=== PATIENT | male | born 1940 | race Caucasian/White ===

== ENCOUNTER 2023-05-08 10:48 | Inpatient (IN) ==
[2023-05-08] MEDS: Propofol 10 mg/ml 100 ML BTL 1,000 MG/100 ML BTL IV SCH ×4 (10:57→23:25)
[2023-05-08] MEDS ORDERED: VERAPAMIL 2.5 MG/ML 2 ML VIAL ** 5 mg/2 ml ONE (11:13)
[2023-05-08] MEDS ORDERED: Heparin 1,000 UNIT/ML 10 ml (10,000 UNITS) CATHLAB/DIALYSIS ONE (11:13)
[2023-05-08 11:14] LABS: ABS Basophils 0.1 10^3/uL (0.0-0.1); ABS Eosinophils 0.1 10^3/uL (0.0-0.5); ABS Lymphocytes 2.7 10^3/uL (1.0-4.8); ABS Monocytes 0.8 10^3/uL (0.0-1.1); ABS Neutrophils 9.4 10^3/uL (1.5-7.6); ABS Nucleated RBC 0.01 10^3/ul; Eosinophil % 1.1 %; Hematocrit 35.1 % (38-53); Hemoglobin 11.4 g/dL (13.2-16.3); Lymphocyte % 20.4 %; Mean Corpuscular Hgb Conc 32.5 g/dL (31-36); Mean Corpuscular Volume 101.3 fL (80-97); Mean Platelet Volume 7.6 fL (7.5-11.2); Nucleated Red Blood Cells % 0.1 %/100WBC (0.0-0.8); Platelet Count 255 10^3/uL (150-450); Red Blood Count 3.46 10^6/uL (4.06-5.63); Red Cell Distribution Width 16.7 % (12-17); White Blood Count 13.2 10^3/uL (3.6-10.2)
[2023-05-08] MEDS ORDERED: Lidocaine 1% MPF 5 ML VIAL ONE (11:14)
[2023-05-08] MEDS ORDERED: Iodixanol (CONTRAST) 320 MG/ML 100 ML SDV IV ONE (11:14)
[2023-05-08] MEDS ORDERED: nitroGLYCERIN DRIP 25,000 MCG/250 ML BTL ONE (11:14)
[2023-05-08] MEDS ORDERED: Heparin 2 UNITS/ML 1000 mls 3,000 ML IV ONE (11:14)
[2023-05-08] MEDS ORDERED: Midazolam 5 mg/5 ml VIAL 1 mg/ml 5 ml VIAL (5 mg) ONE (11:15)
[2023-05-08] MEDS ORDERED: fentaNYL 100 mcg/2 ml 50 MCG/ML VIAL ONE ×2 (11:15→13:54)
[2023-05-08 11:27] LABS: Activated Partial Thrombo Time 35.8 seconds (26.0-38.0); INR 1.34 (0.83-1.13)
[2023-05-08] MEDS ORDERED: Heparin 2 UNITS/ML 1000 mls 1,000 ML IV ONE ×2 (11:33→12:47)
[2023-05-08] MEDS ORDERED: Iohexol 350 (CONTRAST) 200 ML MDV IV ONE (11:34)
[2023-05-08 11:44] LABS: Albumin 3.6 g/dL (3.2-5.2); Albumin/Globulin Ratio 1.2 (1-3); C Reactive Protein 12.48 mg/L (<8.01); Calcium 8.3 mg/dL (8.6-10.3); Creatinine, Serum 1.54 mg/dL (0.67-1.17); Globulin 2.9 g/dL (2-4); Potassium 3.7 mmol/L (3.5-5.0); Total Bilirubin 0.7 mg/dL (0.2-1.0); Total Protein 6.5 g/dL (6.4-8.9); eGFR CKD-EPI 44.5 (>60)
[2023-05-08 11:53] LABS: Urine Appearance Clear; Urine Bilirubin Negative (Negative); Urine Blood 1+ (Negative); Urine Color Yellow; Urine Glucose Negative (Negative); Urine Ketones Negative (Negative); Urine Nitrite Negative (Negative); Urine Protein 2+(100 mg/dL) (Negative); Urine Urobilinogen Negative (Negative)
[2023-05-08 12:14] LABS: Urine Bacteria Absent (Absent); Urine Red Blood Cell 2+(6-10/hpf) (Absent); Urine White Blood Cell 1+(6-10/hpf) (Absent)
[2023-05-08] MEDS ORDERED: Propofol 10 MG/ML 20 ML BTL IV PUSH ONE (12:30)
[2023-05-08] MEDS ORDERED: fentaNYL 100 mcg/2 ml 50 MCG/ML VIAL IV SLOW PU ONE (12:32)
[2023-05-08] MEDS ORDERED: Atropine 1 MG/ML INJ 1 ML VIAL IV PUSH ONE (12:33)
[2023-05-08] MEDS ORDERED: Atropine 0.1 MG/ML 10 ml SYR (1 mg) ONE (12:41)
[2023-05-08] MEDS ORDERED: Iohexol 350 (CONTRAST) 100 ML PAK IV ONE ×2 (13:42→14:26)
[2023-05-08 14:01] LABS: High Sensitivity Troponin 1 Hr 213 pg/mL (<20)
[2023-05-08 17:04] LABS: PCO2 Arterial 39 mmHg (35-45); PO2 Arterial 127 mmHg (80-100)
[2023-05-08] MEDS ORDERED: Norepinephrine 4 MG/250mL D5W 4,000 MCG/250 ML BAG IV ONE (17:44)
[2023-05-08] MEDS ORDERED: Norepinephrine 4 MG/250mL NS 4,000 MCG/250 ML BAG IV SCH (18:00)
[2023-05-08] MEDS: Midazolam PREMIXBAG 1 MG/ML NS 100 ML IV SCH (18:02)
[2023-05-08] MEDS ORDERED: Vancomycin 1,750 MG in NS 0.9% 500 ml BAG 500 ML IVPB ONE (18:41)
[2023-05-08] MEDS ORDERED: Vancomycin per Pharmacy 1 EA NOTE FOLLOW UP PRN (18:47)
[2023-05-08] MEDS: Chlorhexidine MOUTHWASH 0.12% 15 ML UDC SWISH SPIT SCH ×2 (19:56→21:30)
[2023-05-08] MEDS: Pantoprazole VIAL 40 MG VIAL IV SCH (19:56)
[2023-05-08] MEDS: Cefepime 2 GM in Dextrose 2 GM/50 ML BAG IV SCH (21:22)
[2023-05-08 21:26] LABS: PCO2 Arterial 36 mmHg (35-45); PO2 Arterial 107 mmHg (80-100)
[2023-05-09] MEDS: Chlorhexidine MOUTHWASH 0.12% 15 ML UDC SWISH SPIT SCH ×6 (01:36→21:14)
[2023-05-09] MEDS: Midazolam PREMIXBAG 1 MG/ML NS 100 ML IV SCH ×3 (03:45→17:31)
[2023-05-09 04:09] LABS: ABS Basophils 0.1 10^3/uL (0.0-0.1); ABS Lymphocytes 0.7 10^3/uL (1.0-4.8); ABS Monocytes 0.9 10^3/uL (0.0-1.1); ABS Nucleated RBC 0.01 10^3/ul; Eosinophil % 0.1 %; Hematocrit 30.9 % (38-53); Hemoglobin 10.4 g/dL (13.2-16.3); Mean Corpuscular Hemoglobin 33.8 pg (27-33); Mean Corpuscular Hgb Conc 33.8 g/dL (31-36); Mean Corpuscular Volume 100.1 fL (80-97); Mean Platelet Volume 7.3 fL (7.5-11.2); Nucleated Red Blood Cells % 0.1 %/100WBC (0.0-0.8); Platelet Count 243 10^3/uL (150-450); Red Blood Count 3.08 10^6/uL (4.06-5.63); Red Cell Distribution Width 16.7 % (12-17); White Blood Count 10.6 10^3/uL (3.6-10.2)
[2023-05-09 04:15] LABS: INR 1.44 (0.83-1.13)
[2023-05-09 04:26] LABS: Albumin 3.4 g/dL (3.2-5.2); Albumin/Globulin Ratio 1.4 (1-3); Calcium 8.1 mg/dL (8.6-10.3); Creatinine, Serum 1.23 mg/dL (0.67-1.17); Globulin 2.5 g/dL (2-4); Magnesium 1.8 mg/dL (1.9-2.7); Phosphorus 3.7 mg/dL (2.5-5.0); Potassium 4.6 mmol/L (3.5-5.0); Total Bilirubin 0.7 mg/dL (0.2-1.0); Total Protein 5.9 g/dL (6.4-8.9); eGFR CKD-EPI 58.3 (>60)
[2023-05-09] MEDS: Propofol 10 mg/ml 100 ML BTL 1,000 MG/100 ML BTL IV SCH ×3 (04:28→18:51)
[2023-05-09] MEDS ORDERED: Magnesium Sulfate IV 0.5 GM/ML 2 ml VIAL (1 gm) IVPB ONE (05:31)
[2023-05-09] MEDS ORDERED: Magnesium Sulfate 2 GM IV (Premix) IVPB ONE (06:00)
[2023-05-09] MEDS: Cefepime 2 GM in Dextrose 2 GM/50 ML BAG IV SCH (07:33)
[2023-05-09] MEDS ORDERED: Furosemide 20 mg/2 ml IV VIAL IV SLOW PU ONE ×2 (09:54→16:46)
[2023-05-09] MEDS ORDERED: Artificial Tear OPHTH.OINT 3.5 GM BOTH EYES PRN (09:55)
[2023-05-09] MEDS ORDERED: Sulfur Hexaflouride MICROSPHR 25 MG VIAL ONE (09:56)
[2023-05-09] MEDS ORDERED: fentaNYL INFUSION 50 mcg/mL VL 2,500 MCG/50 ML VIAL IV SCH (10:00)
[2023-05-09] MEDS: fentaNYL INFUSION 50 mcg/mL VL 2,500 MCG/50 ML VIAL IV SCH (11:59)
[2023-05-09] MEDS ORDERED: Rocuronium 50 mg VIAL 10 mg/ml 5 ml VIAL (50 mg) IV ONE (12:15)
[2023-05-09] MEDS ORDERED: Rocuronium 50 mg VIAL 10 mg/ml 5 ml VIAL (50 mg) ONE (12:16)
[2023-05-09 13:10] LABS: High Sensitivity Troponin 1 Hr 964 pg/mL (<20)
[2023-05-09] MEDS ORDERED: levETIRAcetam 1000MG IVPREMIX 1,000 MG/100 ML BAG IVPB ONE (13:24)
[2023-05-09] MEDS: cefTRIAXone 2 gm/50 mL D5W 2 GM/50 ML BAG IV SCH (14:18)
[2023-05-09 15:06] VITALS: BP 141/71
[2023-05-09] MEDS: Enoxaparin 40 MG/0.4 ML SYR SUBCUT SCH (17:15)
[2023-05-09] MEDS: Pantoprazole VIAL 40 MG VIAL IV SCH (17:15)
[2023-05-09] MEDS ORDERED: Dextrose 50% Syringe 50 ml 25 GM/50 ML SYRINGE IV PUSH PRN (18:08)
[2023-05-09] MEDS ORDERED: Vancomycin 1,250 MG in NS 0.9% 250 ml 250 ML IVPB SCH (21:00)
[2023-05-09] MEDS: levETIRAcetam 500 MG IVPREMIX 500 MG/100 ML BAG IV SCH (21:14)
[2023-05-09] MEDS: DOXYcycline 100 MG in NS 0.9% 250 ml 250 ML IVPB SCH (22:09)
[2023-05-10] MEDS: Propofol 10 mg/ml 100 ML BTL 1,000 MG/100 ML BTL IV SCH ×6 (00:24→20:58)
[2023-05-10] MEDS: Chlorhexidine MOUTHWASH 0.12% 15 ML UDC SWISH SPIT SCH ×7 (01:52→22:11)
[2023-05-10 05:35] LABS: Hematocrit 32.2 % (38-53); Hemoglobin 10.7 g/dL (13.2-16.3); Mean Corpuscular Hemoglobin 33.4 pg (27-33); Mean Corpuscular Hgb Conc 33.3 g/dL (31-36); Mean Corpuscular Volume 100.3 fL (80-97); Mean Platelet Volume 7.3 fL (7.5-11.2); Platelet Count 239 10^3/uL (150-450); Red Blood Count 3.21 10^6/uL (4.06-5.63); Red Cell Distribution Width 17.1 % (12-17); White Blood Count 10.4 10^3/uL (3.6-10.2)
[2023-05-10 06:00] LABS: Albumin 3.5 g/dL (3.2-5.2); Albumin/Globulin Ratio 1.2 (1-3); Calcium 8.7 mg/dL (8.6-10.3); Magnesium 2.1 mg/dL (1.9-2.7); Potassium 4.1 mmol/L (3.5-5.0); Total Bilirubin 0.7 mg/dL (0.2-1.0); Total Protein 6.5 g/dL (6.4-8.9); eGFR CKD-EPI 74.7 (>60)
[2023-05-10] MEDS: Midazolam PREMIXBAG 1 MG/ML NS 100 ML IV SCH ×2 (08:00→22:09)
[2023-05-10] MEDS: DOXYcycline 100 MG in NS 0.9% 250 ml 250 ML IVPB SCH ×2 (09:10→22:11)
[2023-05-10] MEDS: levETIRAcetam 500 MG IVPREMIX 500 MG/100 ML BAG IV SCH ×2 (09:11→20:32)
[2023-05-10] MEDS ORDERED: Lactated Ringers 1000 ml BAG IV.FLUID IV ONE (10:04)
[2023-05-10] MEDS: cefTRIAXone 2 gm/50 mL D5W 2 GM/50 ML BAG IV SCH (11:32)
[2023-05-10] MEDS: Pantoprazole VIAL 40 MG VIAL IV SCH (16:18)
[2023-05-10] MEDS: Enoxaparin 40 MG/0.4 ML SYR SUBCUT SCH (16:18)
[2023-05-10] MEDS ORDERED: Acetaminophen IV 1 GM/100ML 1,000 MG/100 ML BAG IV ONE (19:41)
[2023-05-10] MEDS: Acetaminophen IV 1 GM/100ML 1,000 MG/100 ML BAG IV PRN (19:42)
[2023-05-10] MEDS ORDERED: niCARdipine 0.1MG/ML IVPREMIX 0 MG/0 ML BAG IV ONE (20:55)
[2023-05-10] MEDS ORDERED: Norepinephrine 4 MG/250mL D5W 4,000 MCG/250 ML BAG IV SCH (22:00)
[2023-05-11] MEDS: Propofol 10 mg/ml 100 ML BTL 1,000 MG/100 ML BTL IV SCH ×5 (01:04→16:32)
[2023-05-11] MEDS: Chlorhexidine MOUTHWASH 0.12% 15 ML UDC SWISH SPIT SCH ×4 (01:43→12:52)
[2023-05-11 05:23] LABS: Calcium 8.3 mg/dL (8.6-10.3); Creatinine, Serum 0.77 mg/dL (0.67-1.17); Magnesium 1.7 mg/dL (1.9-2.7); eGFR CKD-EPI 88.8 (>60)
[2023-05-11] MEDS: fentaNYL INFUSION 50 mcg/mL VL 2,500 MCG/50 ML VIAL IV SCH (05:29)
[2023-05-11 06:11] LABS: ABS Basophils 0.1 10^3/uL (0.0-0.1); ABS Eosinophils 0.1 10^3/uL (0.0-0.5); ABS Lymphocytes 0.8 10^3/uL (1.0-4.8); ABS Monocytes 0.7 10^3/uL (0.0-1.1); ABS Neutrophils 5.7 10^3/uL (1.5-7.6); ABS Nucleated RBC 0.01 10^3/ul; Eosinophil % 1.2 %; Hematocrit 27.4 % (38-53); Hemoglobin 9.4 g/dL (13.2-16.3); Lymphocyte % 10.9 %; Mean Corpuscular Hemoglobin 34.1 pg (27-33); Mean Corpuscular Hgb Conc 34.3 g/dL (31-36); Mean Corpuscular Volume 99.5 fL (80-97); Mean Platelet Volume 7.8 fL (7.5-11.2); Nucleated Red Blood Cells % 0.1 %/100WBC (0.0-0.8); Platelet Count 221 10^3/uL (150-450); Red Blood Count 2.76 10^6/uL (4.06-5.63); Red Cell Distribution Width 17.1 % (12-17); White Blood Count 7.4 10^3/uL (3.6-10.2)
[2023-05-11] MEDS ORDERED: Magnesium Sulfate 2 gm BAG 2 GM/50 ML BAG IVPB ONE (06:36)
[2023-05-11 09:22] LABS: Resp Rate 20
[2023-05-11 09:26] LABS: PCO2 Arterial 42 mmHg (35-45)
[2023-05-11 09:31] LABS: PO2 Arterial 55 mmHg (80-100)
[2023-05-11] MEDS: levETIRAcetam 500 MG IVPREMIX 500 MG/100 ML BAG IV SCH (11:04)
[2023-05-11] MEDS: DOXYcycline 100 MG in NS 0.9% 250 ml 250 ML IVPB SCH (11:04)
[2023-05-11] MEDS: Midazolam PREMIXBAG 1 MG/ML NS 100 ML IV SCH (11:09)
[2023-05-11] MEDS: cefTRIAXone 2 gm/50 mL D5W 2 GM/50 ML BAG IV SCH (12:52)
[2023-05-11] MEDS: Acetaminophen IV 1 GM/100ML 1,000 MG/100 ML BAG IV PRN (14:06)
[2023-05-11 15:47] LABS: Anaplasma phagocytophilum Negative (Negative); B. miyamotoi PCR, B Negative (Negative); Babesia divergens/MO-1 Negative (Negative); Babesia ducani Negative (Negative); Ehrlichia chaffeensis Negative (Negative); Ehrlichia ewingii/canis Negative (Negative); Ehrlichia muris eauclairensis Negative (Negative)
[2023-05-11] MEDS ORDERED: LORazepam 2 mg VIAL 1 ml IV PUSH ONE (17:45)
[2023-05-11] MEDS ORDERED: Lorazepam PYXIS KEY PRN (17:45)
[2023-05-11] MEDS ORDERED: LORazepam 2 mg VIAL 1 ml ONE (17:47)
[2023-05-11] MEDS ORDERED: Vancomycin Trough Check NOTE FOLLOW UP ONE (20:30)
== END 2023-05-11 22:17 | disposition expired ==
LOC: ED 10:48 → CHICATH 11:53 → ICU 15:00
PROVIDERS: ADMIT Emergency Medicine; ATTEND Student in an Organized Health Care Education/Training Program